=== PATIENT | female | born 1965 | race Caucasian/White ===

== ENCOUNTER → 2017-09-11 | Outpatient (CLI) | payer OTHER ==
[2016-06-30 17:29] VITALS: BP 142/87
== END | disposition home or self-care (01) | DRG 204 ==
LOC: RAD 14:03
PROVIDERS: ATTEND Nurse Practitioner Family
DX: R06.09 Other forms of dyspnea (principal); I50.30 Unspecified diastolic (congestive) heart failure; I51.7 Cardiomegaly
CPT/HCPCS: 93306

== ENCOUNTER 2024-08-24 09:45 | Observation (INO) ==
[2024-08-24] MEDS: ZOFRAN INJ 4 MG VIAL IVP PRN (11:49)
--- NOTE | 2024-08-24 12:06 | EKG ---
Test Reason : dizziness, near syncope Blood Pressure : */* mmHG Vent. Rate : 81 BPM Atrial Rate : 81 BPM P-R Int : 158 ms QRS Dur : 72 ms QT Int : 364 ms P-R-T Axes : 30 4 34 degrees QTc Int : 422 ms Normal sinus rhythm Nonspecific T wave abnormality Abnormal ECG No previous ECGs available Confirmed by Lauro Mack MD ([id number]) on 08/25/2024 7:29:47 AM Referred By: Confirmed By: Lauro Mack MD
[2024-08-24 12:11] LABS: BASOPHILS # (AUTO) 0.1 X10^3/uL (0.0-0.1); BASOPHILS % (AUTO) 0.7 % (0.2-1.0); EOSINOPHILS # (AUTO) 0.1 x10^3/uL (0.0-0.2); EOSINOPHILS % (AUTO) 0.9 % (0.9-2.9); HEMATOCRIT 41.5 % (36.0-47.0); HEMOGLOBIN 14.4 g/dL (12.0-16.0); LYMPHOCYTES # (AUTO) 2.1 X10^3/uL (1.3-2.9); MEAN CORPUSCULAR HEMOGLOBIN 29.6 pg (27.0-34.0); MEAN CORPUSCULAR HGB CONC 34.7 g/dL (33.0-35.0); MEAN CORPUSCULAR VOLUME 85.2 fL (80.0-100.0); MEAN PLATELET VOLUME 7.3 fL (7.4-11.0); MONOCYTES # (AUTO) 0.5 x10^3/uL (0.3-0.8); MONOCYTES % (AUTO) 6.4 % (0.0-13.0); NEUTROPHILS # (AUTO) 5.3 x10^3/uL (2.2-4.8); PLATELET COUNT 257 X10^3/uL (150.0-450.0); RED BLOOD COUNT 4.87 X10^6/uL (3.5-5.4); RED CELL DISTRIBUTION WIDTH 14.5 % (11.6-16.5)
[2024-08-24 12:33] LABS: ALANINE AMINOTRANSFERASE 20 Units/L (12-78); ALBUMIN 3.8 g/dL (3.4-5.0); ALKALINE PHOSPHATASE 80 Units/L (46-116); ASPARTATE AMINO TRANSFERASE 14 Units/L (15-37); BLOOD UREA NITROGEN 8 mg/dL (7-18); CALCIUM 9.4 mg/dL (8.5-10.1); CARBON DIOXIDE 29.6 mmol/L (21-32); CHLORIDE 109 mmol/L (98-107); CREATININE 0.89 mg/dL (0.55-1.02); FREE T4 (FREE THYROXINE) 0.98 ng/dL (0.76-1.46); GLUCOSE 97 mg/dL (65-99); MAGNESIUM 1.7 mg/dL (2.0-2.9); POTASSIUM 3.6 mmol/L (3.5-5.1); SODIUM 146 mmol/L (136-145); TOTAL PROTEIN 6.8 g/dL (6.4-8.2); TSH (3RD GENERATION) 0.007 uIU/mL (0.358-3.74); eGFR NON BLACK RACES > 60 (>60)
[2024-08-24 12:46] LABS: CREATINE KINASE 67 Units/L (26-192)
[2024-08-24] MEDS: BENADRYL INJ 50 MG VIAL IVP ONE (13:00)
[2024-08-24] MEDS: ZESTRIL TAB 5 MG PO SCH (13:18)
[2024-08-24] MEDS: NS 1,000 ML IV 1,000 ML IV SCH (13:18)
--- NOTE | 2024-08-24 13:43 | DR.H&P ---
H&P History & Physical for Day of: H&P Date: 08/24/24 Chief Complaint Chief Complaint: DIZZINESS, MONTES, N/V, HIGH BLOOD PRESSURE History of Present Illness History of Present Illness: PT IS 58 WF, DIRECT ADMIT FROM DR STRINGER OFFICE WITH CO INTRACTABLE DIZZINESS, NEAR SYNCOPE, [place] AND ABNORMAL BLOOD PRESSURE. PT REPORTS SYMPTOMS STARTED LAST WEEK AND SHE HAS KEPT BP LOG WITH PULSE AND INCREASED PO HYDRATION. PT STATES HER HEAD SPINS WORSE LAYING DOWN. PT CO PALPITATIONS. PT BP IN OFFICE THIS AM 180/110 AND SHE TOOK METOPROLOL LAST PM. PT HELD HER LISINOPRIL BECAUSE HER BP WAS 100S/50S ON FRIDAY. PT DENIES SOB. PT CO HEADACHES AND DENIES ANY FEVER OR FLU LIKE SYMPTOMS. PT REPORTS SHE HAS STRESS TEST ~2 YEARS AGO. Past Medical History Past Medical History: Dyslipidemia, Migraines, Hypertension and Hypothyroidism Past Surgical History Surgical History: and Cholecystectomy Family History Family Medical History: Cancer, [place] and Coronary Artery Disease Medications Home Medications: Home Medications Medication Instructions Recorded Confirmed Type amitriptyline 25 mg tablet 25 mg PO QPM 08/24/24 08/24/24 History lisinopril 10 mg tablet 10 mg PO QDAY 08/24/24 08/24/24 History thyroid (pork) 120 mg tablet 120 mg PO QDAY 08/24/24 08/24/24 History ([place] Thyroid) Allergies Allergies Allergy/AdvReac Type Severity Reaction Status Date / Time No Known Drug Allergies Allergy Verified 06/02/23 12:40 Labs 08/24/24 11:57 08/24/24 11:57 Labs: Laboratory WBC 8.0 X10^3/uL (3.6-10.0) 08/24/24 11:57 RBC 4.87 X10^6/uL (3.5-5.4) 08/24/24 11:57 Hgb 14.4 g/dL (12.0-16.0) 08/24/24 11:57 Hct 41.5 % (36.0-47.0) 08/24/24 11:57 MCV 85.2 fL (80.0-100.0) 08/24/24 11:57 MCH 29.6 pg (27.0-34.0) 08/24/24 11:57 MCHC 34.7 g/dL (33.0-35.0) 08/24/24 11:57 RDW 14.5 % (11.6-16.5) 08/24/24 11:57 Plt Count 257 X10^3/uL (150.0-450.0) 08/24/24 11:57 MPV 7.3 fL (7.4-11.0) L 08/24/24 11:57 Neut % (Auto) 66.0 % (42.0-75.0) 08/24/24 11:57 Lymph % (Auto) 26.0 % (21.0-51.0) 08/24/24 11:57 [place] % (Auto) 6.4 % (0.0-13.0) 08/24/24 11:57 Eos % (Auto) 0.9 % (0.9-2.9) 08/24/24 11:57 Baso % (Auto) 0.7 % (0.2-1.0) 08/24/24 11:57 Neut # (Auto) 5.3 x10^3/uL (2.2-4.8) H 08/24/24 11:57 Lymph # (Auto) 2.1 X10^3/uL (1.3-2.9) 08/24/24 11:57 [place] # (Auto) 0.5 x10^3/uL (0.3-0.8) 08/24/24 11:57 Eos # (Auto) 0.1 x10^3/uL (0.0-0.2) 08/24/24 11:57 Baso # (Auto) 0.1 X10^3/uL (0.0-0.1) 08/24/24 11:57 Absolute Nucleated RBC 0.1 /100WBC 08/24/24 11:57 D-Dimer 0.32 ug/ml (0.0-0.57) 08/24/24 11:57 Sodium 146 mmol/L (136-145) H 08/24/24 11:57 Corrected Sodium TNP 08/24/24 11:57 Potassium 3.6 mmol/L (3.5-5.1) 08/24/24 11:57 Chloride 109 mmol/L (98-107) H 08/24/24 11:57 Carbon Dioxide 29.6 mmol/L (21-32) 08/24/24 11:57 BUN 8 mg/dL (7-18) 08/24/24 11:57 Creatinine 0.89 mg/dL (0.55-1.02) 08/24/24 11:57 Est GFR (MDRD) Af Amer > 60 (>60) 08/24/24 11:57 Est GFR (MDRD) Non-Af > 60 (>60) 08/24/24 11:57 Glucose 97 mg/dL (65-99) 08/24/24 11:57 Calcium 9.4 mg/dL (8.5-10.1) 08/24/24 11:57 Corrected Calcium TNP 08/24/24 11:57 Magnesium 1.7 mg/dL (2.0-2.9) L 08/24/24 11:57 Iron Cancelled 08/24/24 11:57 Total Bilirubin 0.70 mg/dL (0.2-1.0) 08/24/24 11:57 AST 14 Units/L (15-37) L 08/24/24 11:57 ALT 20 Units/L (12-78) 08/24/24 11:57 Alkaline Phosphatase 80 Units/L (46-116) 08/24/24 11:57 Creatine Kinase 67 Units/L (26-192) 08/24/24 11:57 Creatine Kinase Cancelled 08/24/24 11:57 Troponin I High Sens < 4.0 ng/L (4.0-60.0) L 08/24/24 11:57 Troponin I High Sens Cancelled 08/24/24 11:57 Total Protein 6.8 g/dL (6.4-8.2) 08/24/24 11:57 Albumin 3.8 g/dL (3.4-5.0) 08/24/24 11:57 Globulin 3.0 g/dL (2.5-4.5) 08/24/24 11:57 Albumin/Globulin Ratio 1.3 Ratio (1.1-2.1) 08/24/24 11:57 Free T4 0.98 ng/dL (0.76-1.46) 08/24/24 11:57 TSH 3rd Generation 0.007 uIU/mL (0.358-3.74) L 08/24/24 11:57 Review of Systems Constitutional: Weakness Eyes: No Symptoms Reported ENT: No Symptoms Reported Respiratory: denies Cough or Wheezing Cardiovascular: Palpitations Gastrointestinal: Nausea and Vomiting Genitourinary: No Symptoms Reported Musculoskeletal: No Symptoms Reported Skin: No Symptoms Reported Neurological: Other (DIZZY, NEAR SYNCOPE, MONTES) Physical Exam Vital Signs: Vital Signs Temperature 97.7 F Pulse Rate [Bilateral Radial] 82 Respiratory Rate 24 Blood Pressure [Right Arm] 174/95 O2 Sat by Pulse Oximetry 99 Oriented: Normal Eyes: Normal Ear: Normal Nose: Normal Throat: Normal Respiratory: RLL Diminished and LLL Diminished Cardiovascular: Tachycardia Auscultation: Bowel Sounds: Normal Palpation: Normal Tenderness: Normal Skin: Decreased Turgur and Diaphoresis (MILD) Psychiatric: Anxiety Mood Description: Anxious Affect: Anxious Speech Pattern: Appropriate Assessment/Plan (1) Hypertensive urgency: Status: Acute Plan: ADMIT, SERIAL CE AND EKG IV HYDRATION, BP CONTROL ADMISSION LABS CT HEAD WO, VERIFY HOME MEDICATIONS (2) Palpitation: Status: Acute (3) Near syncope: Status: Acute
[2024-08-24] MEDS ORDERED: CONSULT PHARMACY - POTASSIUM & MAGNESIUM XX SCH (17:00)
[2024-08-24] MEDS: MAG-OX TAB PO SCH (17:29)
[2024-08-24] MEDS: K-DUR TAB 20 MEQ PO ONE (17:29)
[2024-08-24] MEDS: NS 1/2 1,000 ML IV 1,000 ML IV SCH (18:04)
[2024-08-24] MEDS: PROTONIX INJ 40 MG VIAL IVP SCH (18:05)
[2024-08-24 18:25] VITALS: BMI 26.2
[2024-08-24] MEDS: NS 1/2 1,000 ML IV 1,000 ML IV ONE (18:44)
[2024-08-24] MEDS: ELAVIL PO SCH (20:21)
[2024-08-25 01:12] LABS: CREATINE KINASE 50 Units/L (26-192)
[2024-08-25] MEDS ORDERED: NS 1/2 1,000 ML IV 1,000 ML IV ONE (04:54)
[2024-08-25 05:18] LABS: BASOPHILS # (AUTO) 0.1 X10^3/uL (0.0-0.1); BASOPHILS % (AUTO) 0.7 % (0.2-1.0); EOSINOPHILS # (AUTO) 0.1 x10^3/uL (0.0-0.2); EOSINOPHILS % (AUTO) 1.9 % (0.9-2.9); HEMATOCRIT 38.6 % (36.0-47.0); HEMOGLOBIN 13.7 g/dL (12.0-16.0); LYMPHOCYTES # (AUTO) 2.9 X10^3/uL (1.3-2.9); LYMPHOCYTES % (AUTO) 38.2 % (21.0-51.0); MEAN CORPUSCULAR HEMOGLOBIN 30.2 pg (27.0-34.0); MEAN CORPUSCULAR HGB CONC 35.6 g/dL (33.0-35.0); MEAN CORPUSCULAR VOLUME 85.1 fL (80.0-100.0); MEAN PLATELET VOLUME 7.5 fL (7.4-11.0); MONOCYTES # (AUTO) 0.6 x10^3/uL (0.3-0.8); MONOCYTES % (AUTO) 7.6 % (0.0-13.0); NEUTROPHILS # (AUTO) 3.9 x10^3/uL (2.2-4.8); NEUTROPHILS % (AUTO) 51.6 % (42.0-75.0); PLATELET COUNT 243 X10^3/uL (150.0-450.0); RED BLOOD COUNT 4.54 X10^6/uL (3.5-5.4); RED CELL DISTRIBUTION WIDTH 14.5 % (11.6-16.5); WHITE BLOOD COUNT 7.6 X10^3/uL (3.6-10.0)
[2024-08-25 05:30] LABS: ALANINE AMINOTRANSFERASE 16 Units/L (12-78); ALBUMIN 3.2 g/dL (3.4-5.0); ALKALINE PHOSPHATASE 69 Units/L (46-116); ASPARTATE AMINO TRANSFERASE 11 Units/L (15-37); BLOOD UREA NITROGEN 8 mg/dL (7-18); CALCIUM 9.1 mg/dL (8.5-10.1); CARBON DIOXIDE 28.6 mmol/L (21-32); CHLORIDE 109 mmol/L (98-107); CHOL/HDL RATIO 5.4 (0.0-5.0); CHOLESTEROL 217 mg/dL (0-200); COR CA(FOR HYPOALB) 9.7 mg/dL (8.5-10.1); CREATININE 0.94 mg/dL (0.55-1.02); GLUCOSE 84 mg/dL (65-99); HDL CHOLESTEROL 40 mg/dL (40-60); MAGNESIUM 1.8 mg/dL (2.0-2.9); POTASSIUM 3.8 mmol/L (3.5-5.1); SODIUM 145 mmol/L (136-145); TRIGLYCERIDES 185 mg/dL (0-150); eGFR NON BLACK RACES > 60 (>60)
[2024-08-25] MEDS ORDERED: CONSULT PHARMACY - POTASSIUM & MAGNESIUM XX SCH (07:00)
--- NOTE | 2024-08-25 07:20 | RAD ---
EXAM:Portable chestHISTORY:CoughCOMPARISON:None br.br.br ectatic. Lung teran are clear. No pleural effusions are identified. Bony thorax is unremarkable. No significant abnormality identifiedIMPRESSION:THIS IS AN ELECTRONICALLY VERIFIED FINAL [id number]/25/2024 7:17 AM - Electronically signed by Barrie Vidal MD
[2024-08-25] MEDS: MAG-OX TAB PO SCH (09:12)
[2024-08-25] MEDS: K-DUR TAB 20 MEQ PO SCH (09:12)
--- NOTE | 2024-08-25 10:22 | US ---
EXAMINATION: THYROID HISTORY: THYROID NODULES, HYPERTENSIVE URGENCY; patient reports previous history of thyroid treatment. COMPARISON STUDY: None. TECHNIQUE: Multiplanar sonographic images of the thyroid gland were performed. FINDINGS: The right lobe measures 2.5 x 0.6 x 0.52cm The left lobe measures 1.7 x 0.51 x 0.53cm The isthmus measures 0.34cm Thyroid is atrophic. No focal lesions. Thyroid is slightly heterogeneous in echotexture which can b e seen with thyroiditis IMPRESSION: Atrophic thyroid with no focal lesions. RECOMMENDATIONS: Clinical follow-up THIS IS AN ELECTRONICALLY VERIFIED FINAL REPORT 08/25/2024 10:12 AM - Electronically signed by Deepak Durbin MD
--- NOTE | 2024-08-25 11:22 | CT ---
EXAMINATION:BRAIN W/O CONHISTORY:DIZZINESS, HYPERTENSIVE URGENCY ;COMPARISON:CT brain 05/25/2023TECHNIQUE:Contiguous noncontrast axial CT images of the brain. Images are reviewed in the axial imaging plane with reformatted sagittal and coronal images.The above CT scan was done with automated exposure control and the mA and kV was adjusted to obtain quality images according to patient size.FINDINGS:No evidence of acute intracranial hemorrhage, mass effect, or midline shift. Normal viramontes-white matter differentiation. Ventricles normal size and shape. Calvarium appears intact.IMPRESSION:No acute intracranial process seen.THIS IS AN ELECTRONICALLY VERIFIED FINAL [id number]/25/2024 11:19 AM - Electronically signed by Katherine Hidalgo MD
[2024-08-25 13:33] VITALS: RESP 20
[2024-08-25 13:34] VITALS: PULSE 79; TEMP 97.5
[2024-08-25 13:37] VITALS: BP 127/79; O2SAT 94
== END 2024-08-25 13:15 | disposition home or self-care (01) ==
LOC: ICU
PROVIDERS: ADMIT Internal Medicine; ATTEND Internal Medicine
DX: R05.8 Other specified cough; Z79.899 Other long term (current) drug therapy; E03.8 Other specified hypothyroidism; R42 Dizziness and giddiness; E78.5 Hyperlipidemia, unspecified; I10 Essential (primary) hypertension; R94.31 Abnormal electrocardiogram [ECG] [EKG]; E83.42 Hypomagnesemia; R51.9 Headache, unspecified; I16.0 Hypertensive urgency